=== PATIENT | male | born 1960 | race Two or more races ===

== ENCOUNTER 2021-10-15 09:30 | Emergency (ER) | payer OTHER, SELFPAY ==
--- NOTE | ~2021-10-15 | CT_ITS ---
EXAMINATION: CT ABDOMEN AND PELVIS WITH CONTRAST CLINICAL INFORMATION: Abdominal pain and tenderness. Nausea, vomiting and diarrhea. COMPARISON: None TECHNIQUE: Multidetector volumetric images were obtained from the superior aspect of the liver through the pubic symphysis following administration 85 mL of Omnipaque 350 intravenous contrast. Sagittal and coronal reformatted images were obtained on the technologist's workstation. Oral contrast: Yes This CT examination was performed using dose optimization techniques as appropriate, variously including the following: *Automated exposure control *Adjustment of mA and/or kV according to patient size (this includes techniques or standardized protocols for targeted exams where dose is matched to indication/reason for exam; i.e. extremities or head) *Use of iterative reconstruction technique DLP: 567 mGy-cm FINDINGS: LUNG BASES: There is atelectasis at the right lung base. LIVER, GALLBLADDER, AND BILIARY TREE: The liver is low in attenuation suggestive of fatty infiltration. The liver and gallbladder are otherwise unremarkable. PANCREAS: Unremarkable. SPLEEN: Unremarkable. ADRENAL GLANDS: Unremarkable. KIDNEYS AND URETERS: The kidneys are normal in size, shape, and attenuation. No hydronephrosis, hydroureter, or calculi seen. No perinephric stranding. BLADDER: Unremarkable. GASTROINTESTINAL TRACT: There is mild wall thickening and edema of the proximal colon, the right, transverse and left colon, suggestive of colitis. There are fluid-filled slightly distended loops of proximal small bowel in the left mid abdomen. No transition zone is seen and this may represent an ileus. Small and large bowel is otherwise unremarkable. The appendix is unremarkable. ABDOMINAL WALL: No significant hernia is appreciated. LYMPH NODES: Normal. VASCULAR: Unremarkable. PELVIC VISCERA: Unremarkable. OSSEOUS STRUCTURES: There are degenerative changes of the spine and hip joints. CT/CT abdomen pelvis w con IMPRESSION: Mild colitis of the colon. Fatty liver. Fleischner guidelines were followed.
[2021-10-15 09:42] VITALS: BP 162/84; PULSE 71; RESP 18; TEMP 36.7; O2SAT 99; BMI 27.8
--- NOTE | 2021-10-15 09:43 | ECG_ITS ---
Test Reason : ABD PAIN Blood Pressure : / mmHG Vent. Rate : 072 BPM Atrial Rate : 072 BPM P-R Int : 152 ms QRS Dur : 080 ms QT Int : 408 ms P-R-T Axes : 051 -21 020 degrees QTc Int : 446 ms Normal sinus rhythm Normal ECG No previous ECGs available Referred By: Melina Sales Electronically Signed By:Jules Avalos
--- NOTE | 2021-10-15 09:44 | ED_ITS ---
HPI - General Adult General Chief complaint: General Medical Stated complaint: NAUSEA/VOMITING W/WEAKNESS PER EMS Time Seen by Provider: 10/15/21 09:37 Source: patient and EMS Mode of arrival: EMS Limitations: no limitations History of Present Illness HPI narrative: 61-year-old male with history of [id number] diabetes, neuropathy who presents to the ER with 2 days of watery diarrhea and new onset of vomiting that started today. He reports severe generalized weakness and dizziness. He has not been able to eat in the last 2 days. He reports central and upper abdominal pain, 5/10 and aching in nature. He denies any fever or chills, no URI symptoms. No known sick contacts. He reports his diarrhea is watery and black. He is not on anticoagulation. He denies history of GI bleed. MD complaint: N/V/D and adominal pain Onset (ago): day(s) (3) Location: abdomen Radiation: non-radiation Severity: moderate Severity scale (1-10): 7 Quality: aching Pain Consistency: intermittent Relieving factors: none Exacerbating factors: eating Associated symptoms: loss of appetite, malaise, nausea/vomiting and weakness Treatments prior to arrival: none Related Data Previous Rx's Medication Instructions Recorded ondansetron 4 mg disintegrating 4 mg PO Q8H PRN #7 tab 10/15/21 tablet Allergies Allergy/AdvReac Type Severity Reaction Status Date / Time Unable to Assess Allergy Unverified 10/15/21 09:43 Review of Systems Review of Systems: Constitutional: No Fever, No Chills ENT/Mouth: No sore throat, No Rhinorrhea, No Swallowing Difficulty Cardiovascular: No Chest Pain, No SOB, No Orthopnea, No Edema Respiratory: No Cough, No Sputum, No Wheezing, No dyspnea Gastrointestinal: + Nausea, + Vomiting, + Diarrhea, + abdominal Pain, No Hematochezia, + Melena Genitourinary: No Dysuria, No Urinary Frequency, No Hematuria Musculoskeletal: No joint pain, No Myalgias Skin: No Skin Lesions, No rash Neuro: + Weakness, No Numbness, + Dizziness, No Headache Psych: No Anxiety/Panic, No Depression Heme/Lymph: No Bruising, No Lymphadenopathy Endocrine: No Polyuria, No Polydipsia PMFSH Past Medical History Medical History (Updated 10/15/21 @ 13:52 by FEI Rangel) Diabetes Social History Social History Alcohol intake: never Smoked in Last 30 Days: No Use of substances other than those prescribed or required for medical reasons: No Advance Directives: No Advance Directives Information Provided: No Physical Exam ED Vital Signs: Vital Signs - 24 hr 10/15/21 09:42 10/15/21 10:22 10/15/21 12:39 Temperature 98.0 F Pulse Rate 71 70 78 Respiratory Rate 18 19 14 Blood Pressure 162/84 H 162/84 H 151/77 H Pulse Oximetry 99 96 99 BMI result Body Mass Index 27.8 Appearance: Alert. Oriented X3. No acute distress. Eyes: Pupils equal, round and reactive to light. ENT: Pharynx normal. Moist mucus membranes Neck: Normal inspection. Neck supple. CVS: Normal heart rate and rhythm. Pulses normal. Respiratory: No respiratory distress. Breath sounds normal. Abdomen: Softly distended, no tympany. moderate epigastic tenderness. no rebound or guarding. +BS x4 Skin: Skin warm and dry. Normal skin color. Normal skin turgor. No rashes. Extremities: No lower extremity edema. Neuro: Oriented X 3. No motor deficit. No sensory deficit. Course Course Course Narrative: 61-year-old male with history of [id number] diabetes, neuropathy who presents to the ER from home via EMS with nausea, vomiting, diarrhea and middle abdominal pain for the last couple of days. He has had watery loose sto ols they describes as dark brown or black. Vomiting started today. He feels weak and dizzy. No fever or chills at home. No red blood per rectum. He is afebrile & hemodynamically stable. IV fluids infusing. Will get labs and CT scan for further evaluation. Reevaluation(s) Reevaluation #1: Lab workup is unremarkable. C/O worsening pain - GI cocktail and toradol. CT scan pending. His dizziness is improved with fluids. Reevaluation #2: CT scan showing mild colitis of the colon as well as some fluid-filled slightly distended loops of proximal small bowel in the left mid abdomen with no transition zone, may represent an ileus. Otherwise unremarkable. He is feeling much better, has not had any vomiting or diarrhea in the 5 hours he has been in the emergency room. He continues to complain of epigastric pain and heartburn. P.o. Prilosec and Tums ordered. He is tolerating oral fluids and crackers. He is now hungry. Asking for more food. Discussed the results of the CT scan and blood workup with the patient. Given his improvement in his symptoms and tolerating p.o., will plan to discharge home with supportive care and plan to follow-up with his PCP and GI. He was instructed to come back to the ER if symptoms worsen. Medical Decision Making Lab Data Result diagrams: 10/15/21 10:16 10/15/21 10:16 Labs: Lab Results 10/15/21 10/15/21 10/15/21 Range/Units 10:16 10:16 10:16 WBC 10.6 (4.8-10.8) X10*3/uL RBC 5.25 (4.60-5.80) X10*6/uL Hgb 14.7 (14.0-18.0) g/dl Hct 45.2 (42.0-52.0) % MCV 86.1 (80.0-98.0) fL MCH 28.0 (27.0-33.0) pg MCHC 32.5 (31.0-36.0) g/dl RDW 13.7 (11.0-16.0) % Plt Count 199 (160-400) X10*3/uL MPV 9.9 (9.4-12.4) fL Immature Gran % (Auto) 1.0 H (0.0-0.4) % Neut % (Auto) 74.4 H (45-73) % Lymph % (Auto) 19.3 L (20-40) % [place] % (Auto) 4.5 (2-11) % Eos % (Auto) 0.4 (0-4) % Baso % (Auto) 0.4 (0-2) % Lymph # (Auto) 2.1 (1.2-4.9) X10*3/uL [place] # (Auto) 0.5 (0.1-1.2) X10*3/uL Eos # (Auto) 0.0 (0.0-0.4) X10*3/uL Baso # (Auto) 0.0 (0.0-0.2) X10*3/uL Abs Immat Gran (auto) 0.11 H (0.00-0.03) X10*3/uL Absolute Neuts (auto) 7.9 (2.0-8.3) x10*3/uL Absolute Nucleated RBC 0.000 (0.0-0.012) X10*3/uL Nucleated RBC % (auto) 0.0 (0.0-0.2) /100WBC Sodium 140 (135-145) mmol/L Potassium 4.7 (3.3-5.1) mmol/L Chloride 103 (96-108) mmol/L Carbon Dioxide 26 (22-29) mmol/L Anion Gap 16 (12-20) BUN 18 H (9-16) mg/dL Creatinine 1.18 (0.5-1.4) mg/dL Estim Creat Clear Calc 77.6 Estimated GFR > 60 Random Glucose 297 H (60-115) mg/dL Calcium 9.8 (8.4-10.2) mg/dL Magnesium 1.8 (1.6-2.6) mg/dL Total Bilirubin 0.7 (0.0-1.0) mg/dL Direct Bilirubin 0.3 (0.0-0.5) mg/dL AST 17 (5-37) U/L ALT 26 (0-40) U/L Alkaline Phosphatase 79 (39-117) U/L Total Protein 7.1 (6.5-8.0) g/dL Albumin 4.4 (3.5-5.0) g/dL Lipase 23 (8-78) U/L COVID-19 (ANGÉLICA) Negative (Negative) COVID-19 Clin Com See Note Influenza Type A (FRANKIE) (Negative) Influenza Type B (FRANKIE) (Negative) Influenza A & B Note 10/15/21 Range/Units 10:16 WBC (4.8-10.8) X10*3/uL RBC (4.60-5.80) X10*6/uL Hgb (14.0-18.0) g/dl Hct (42.0-52.0) % MCV (80.0-98.0) fL MCH (27.0-33.0) pg MCHC (31.0-36.0) g/dl RDW (11.0-16.0) % Plt Count (160-400) X10*3/uL MPV (9.4-12.4) fL Immature Gran % (Auto) (0.0-0.4) % Neut % (Auto) (45-73) % Lymph % (Auto) (20-40) % [place] % (Auto) (2-11) % Eos % (Auto) (0-4) % Baso % (Auto) (0-2) % Lymph # (Auto) (1.2-4.9) X10*3/uL [place] # (Auto) (0.1-1.2) X10*3/uL Eos # (Auto) (0.0-0.4) X10*3/uL Baso # (Auto) (0.0-0.2) X10*3/uL Abs Immat Gran (auto) (0.00-0.03) X10*3/uL Absolute Neuts (auto) (2.0-8.3) x10*3/uL Absolute Nucleated RBC (0.0-0.012) X10*3/uL Nucleated RBC % (auto) (0.0-0.2) /100WBC Sodium (135-145) mmol/L Potassium (3.3-5.1) mmol/L Chloride (96-108) mmol/L Carbon Dioxide (22-29) mmol/L Anion Gap (12-20) BUN (9-16) mg/dL Creatinine (0.5-1.4) mg/dL Estim Creat Clear Calc Estimated GFR Random Glucose (60-115) mg/dL Calcium (8.4-10.2) mg/dL Magnesium (1.6-2.6) mg/dL Total Bilirubin (0.0-1.0) mg/dL Direct Bilirubin (0.0-0.5) mg/dL AST (5-37) U/L ALT (0-40) U/L Alkaline Phosphatase (39-117) U/L Total Protein (6.5-8.0) g/dL Albumin (3.5-5.0) g/dL Lipase (8-78) U/L COVID-19 (ANGÉLICA) (Negative) COVID-19 Clin Com Influenza Type A (FRANKIE) Negative (Negative) Influenza Type B (FRANKIE) Negative (Negative) Influenza A & B Note See Note ECG Data Attestation: I personally reviewed and interpreted this ECG as follows: Interpretation: normal sinus rhythm, heart rate 72 beats per minute, normal RI interval, normal Q TCC. Isolated T-wave inversion in V1. No ST segment elevations or depressions. Discharge Plan Discharge Clinical Impression: Colitis Patient Disposition: Home, Self-Care Instructions: Colitis (ED) Additional Instructions: Your CT scan showed mild inflammation of your colon, also known as colitis. This is self-limited and will improve on its own with time. Recommend rest and increasing your oral hydration. Stick to a bland diet while you are not feeling well. Recommend over the counter Pepto Bismol as needed for upset stomach and diarrh ea. Recommend following up with GI. If you develop new or worsening symptoms call 911 or come back to the ER for further evaluation. Prescriptions: New ondansetron 4 mg tablet,disintegrating 4 mg PO Q8H PRN (Reason: nausea and vomiting) Qty: 7 0RF Referrals: Roberto Gibson MD [Physician] - 2 days (follow up colitis)
[2021-10-15] MEDS: 0.9 % Sodium Chloride 1,000 ML 999 ML IVCONT (10:03)
[2021-10-15 10:20] LABS: MANUAL DIFF FLAG NO
[2021-10-15 10:22] VITALS: BP 162/84; PULSE 70; RESP 19; O2SAT 96
[2021-10-15 10:22] LABS: Basophils Percent Auto 0.4 % (0-2); Eosinophils Percent Auto 0.4 % (0-4); Hematocrit 45.2 % (42.0-52.0); Hemoglobin 14.7 g/dl (14.0-18.0); Imm Gran Abs Auto 0.11 X10*3/uL (0.00-0.03); Lymphocytes Absolute Auto 2.1 X10*3/uL (1.2-4.9); Lymphocytes Percent Auto 19.3 % (20-40); Mean Corpuscular HGB Conc 32.5 g/dl (31.0-36.0); Mean Corpuscular Volume 86.1 fL (80.0-98.0); Mean Platelet Volume 9.9 fL (9.4-12.4); Monocytes Absolute Auto 0.5 X10*3/uL (0.1-1.2); Monocytes Percent Auto 4.5 % (2-11); Neutrophils Absolute Auto 7.9 x10*3/uL (2.0-8.3); Neutrophils Percent Auto 74.4 % (45-73); Platelet Count 199 X10*3/uL (160-400); Red Blood Count 5.25 X10*6/uL (4.60-5.80); Red Cell Distribution Width 13.7 % (11.0-16.0); White Blood Count 10.6 X10*3/uL (4.8-10.8)
[2021-10-15 10:37] LABS: Alanine Aminotransferase 26 U/L (0-40); Albumin Level 4.4 g/dL (3.5-5.0); Alkaline Phosphatase 79 U/L (39-117); Anion Gap 16 (12-20); Aspartate Amino Transferase 17 U/L (5-37); Bilirubin Direct 0.3 mg/dL (0.0-0.5); Bilirubin Total 0.7 mg/dL (0.0-1.0); Blood Urea Nitrogen 18 mg/dL (9-16); Calcium 9.8 mg/dL (8.4-10.2); Carbon Dioxide 26 mmol/L (22-29); Chloride 103 mmol/L (96-108); Creatinine Clr Calc Pharmacy 77.6; Estimated Glomerular Filt Rate > 60; Glucose Random 297 mg/dL (60-115); Lipase 23 U/L (8-78); Magnesium 1.8 mg/dL (1.6-2.6); Potassium 4.7 mmol/L (3.3-5.1); Sodium 140 mmol/L (135-145); Total Protein 7.1 g/dL (6.5-8.0)
[2021-10-15 10:41] LABS: COVID-19 Test Negative (Negative)
[2021-10-15] MEDS: iohexoL 350 MG/ML 100 ML INFUS..BTL 85 ML IV (11:03)
[2021-10-15 11:18] LABS: Influenza A Negative (Negative); Influenza B2 Negative (Negative)
[2021-10-15] MEDS: Ketorolac Tromethamine 30 MG/ML VIAL IVPUSH (11:37)
[2021-10-15] MEDS: PHENobarb/Hyoscy/Atropine/Scop 10 ML ELIXIR PO (11:37)
[2021-10-15] MEDS: Lidocaine HCl Viscous 2 % 15 ML SOLUTION MUCOUS MEM (11:38)
[2021-10-15] MEDS: Magnesium Hydrox/Alum Hydrox 30 ML ORAL.SUSP PO (11:38)
[2021-10-15] MEDS: Lactated Ringers 1,000 ML 999 ML IV (11:38)
[2021-10-15 12:39] VITALS: BP 151/77; PULSE 78; RESP 14; O2SAT 99
--- NOTE | 2021-10-15 14:41 | PC.NURSE ---
pt tolerated po challenge well. pa aware.
[2021-10-15] MEDS: Omeprazole 40 MG CAPSULE.DR PO (15:13)
[2021-10-15] MEDS: Calcium Carbonate 750 MG TAB.CHEW 1500 MG PO (15:13)
== END 2021-10-15 15:49 | disposition home or self-care (01) ==
PROVIDERS: Physician Assistant; Emergency Provider Emergency Medicine
DX: K52.9 Noninfective gastroenteritis and colitis, unspecified (principal); R11.2 Nausea with vomiting, unspecified; Z20.822 Contact with and (suspected) exposure to COVID-19; Z79.899 Other long term (current) drug therapy
CPT/HCPCS: 74177; 80048; 80076; 83690; 83735; 85025; 87502; 87635; 93005; 96361; 96374; 99285; J1885; Q9967